=== PATIENT | male | born 1995 | race American Indian/Alaskan Native ===

== ENCOUNTER 2016-06-28 20:07 | Emergency (ER) | payer SELFPAY ==
[2016-06-29] MEDS ORDERED: MOTRIN PO ONE (01:31)
--- NOTE | 2016-06-29 02:33 | Emergency Department Report ---
ED General Adult HPI - General Chief complaint: Sore Throat Stated complaint: CHEST PAIN, DIFFICULTY SWALLOWING Time Seen by Provider: 06/29/16 01:30 Source: patient Mode of arrival: Ambulatory Limitations: No Limitations - History of Present Illness Initial comments: Patient complains of throat pain 2-3 days. States it's hard and painful to swallow. Reports one episode of chest pain (states felt like weight on his chest) yesterday that lasted about 1 hour and completely resolved. States no chest pain today. States also coughed up green mucus yesterday. Denies fever, chills, nausea, vomiting, diarrhea, abdominal flank pain, difficulty breathing or SOB, urinary symptoms. Denies known sick contacts. No other acute complaints today, Severity scale (0 -10): 5 - Related Data Previous Rx's Medication Instructions Recorded Last Taken Type Amoxicillin/K Clav Tab [Augmentin 1 tab PO Q12HR #20 tab 06/29/16 Unknown Rx 875 mg] Ibuprofen [Motrin] 600 mg PO Q8H PRN #10 tablet 06/29/16 Unknown Rx Allergies Allergy/AdvReac Type Severity Reaction Status Date / Time No Known Allergies Allergy Verified 06/28/16 20:14 ED Review of Systems ROS: Stated complaint: CHEST PAIN, DIFFICULTY SWALLOWING Other details as noted in HPI Comment: All other systems reviewed and negative ED Past Medical Hx - Past Medical History Previous Medical History?: No - Social History Smoking Status: Current Some Day Smoker Substance Use Type: None - Medications Home Medications: Home Medications Medication Instructions Recorded Confirmed Last Taken Type Amoxicillin/K Clav Tab [Augmentin 1 tab PO Q12HR #20 tab 06/29/16 Unknown Rx 875 mg] Ibuprofen [Motrin] 600 mg PO Q8H PRN #10 tablet 06/29/16 Unknown Rx ED Physical Exam - General Limitations: No Limitations General appearance: alert, in no apparent distress - Head Head exam: Present: atraumatic, normocephalic - Eye Eye exam: Present: normal appearance, PERRL, EOMI. Absent: scleral icterus, conjunctival injection, periorbital swelling, periorbital tenderness - ENT ENT exam: Present: mucous membranes moist, TM's normal bilaterally, normal external ear exam. Absent: normal orophraynx (b/l tonsillar edema and erythema. No exudates.) - Neck Neck exam: Present: normal inspection, full ROM, lymphadenopathy (b/l ). Absent : tenderness, meningismus - Respiratory Respiratory exam: Present: normal lung sounds bilaterally. Absent: respiratory distress, wheezes, rales, rhonchi, chest wall tenderness, accessory muscle use, decreased breath sounds, prolonged expiratory - Cardiovascular Cardiovascular Exam: Present: regular rate, normal rhythm, normal heart sounds. Absent: irregular rhythm, systolic murmur, diastolic murmur, rubs, gallop, clicks, JVD - GI/Abdominal GI/Abdominal exam: Present: soft. Absent: distended, tenderness - Extremities Exam Extremities exam: Present: normal inspection, full ROM, normal capillary refill. Absent: tenderness, pedal edema, joint swelling, calf tenderness - Back Exam Back exam: Present: normal inspection, full ROM. Absent: tenderness, CVA tenderness (R), CVA tenderness (L) - Neurological Exam Neurological exam: Present: alert, oriented X3, normal gait, reflexes normal. Absent: motor sensory deficit - Psychiatric Psychiatric exam: Present: normal affect, normal mood - Skin Skin exam: Present: warm, dry, intact, normal color. Absent: rash, cyanosis, diaphoretic, erythema, urticaria, vesicles, petechiae, ecchymosis ED Course Vital Signs 06/28/16 06/29/16 20:27 00:53 Temperature 100.3 F H Pulse Rate 84 97 H Respiratory 18 16 Rate Blood Pressure 137/85 125/63 [Right] O2 Sat by Pulse 100 100 Oximetry ED Medical Decision Making - EKG Data -: EKG Interpreted by Me (no obvious acute ST changes.) EKG shows normal: sinus rhythm Rate: normal - Medical Decision Making 21-year-old male with acute strep pharyngotonsillitis. Patient is stable. He will be DC'd on oral Augmentin and Motrin (see prescriptions). Patient education, follow-up/referral, and return instructions provided. He verbalized understanding and is agreeable to plan. - Differential Diagnosis pericarditis, rhematic heart. Pharyngotonsilitis. Critical care attestation.: If time is entered above; I have spent that time in minutes in the direct care of this critically ill patient, excluding procedure time. ED Disposition Clinical Impression: Tonsillopharyngitis Disposition: DISCHARGED TO HOME OR SELFCARE Is pt being admited?: No Does the pt Need Aspirin: No Condition: Stable Instructions: Tonsillitis (ED), Strep Throat (ED) Prescriptions: Amoxicillin/K Clav Tab [Augmentin 875 mg] 1 tab PO Q12HR #20 tab Ibuprofen [Motrin] 600 mg PO Q8H PRN #10 tablet PRN Reason: fever/pain [facility]errals: [facility] - 2-3 Days PRIMARY CARE,MD [Primary Care Provider] - 2-3 Days
[2016-06-29 02:42] VITALS: BP 109/74
== END 2016-06-29 03:04 | disposition home or self-care (01) ==
LOC: ED 20:07
DX: B00.2 Herpesviral gingivostomatitis and pharyngotonsillitis (principal); R05 Cough; F17.200 Nicotine dependence, unspecified, uncomplicated
CPT/HCPCS: 87430; 93005; 93010; 99283